=== PATIENT | female | born 1990 | race Caucasian/White ===

== ENCOUNTER 2017-01-10 18:57 | Emergency (ER) | payer SELFPAY ==
[2017-01-10 19:06] VITALS: TEMP 98.2
[2017-01-10] MEDS ORDERED: Lidocaine 1% Inj (20ml) ONE (19:38)
[2017-01-10] MEDS ORDERED: TDAP Vaccine 0.5 mL Syr IM ONE (20:20)
--- NOTE | 2017-01-10 20:29 | ED PDOC ---
Arrival/HPI - General Historian: Patient - History of Present Illness Time/Duration: Prior to Arrival Symptom Onset: Sudden <Jesus Marshall - Last Filed: 01/10/17 20:26> <Peterson Qureshi - Last Filed: 01/10/17 21:45> - General Chief Complaint: Upper Extremity Problem/Injury Time Seen by Provider: 01/10/17 20:15 - Critical Care Narrative Critical Care (Text): 01/10/17 20:33 26 y/o female with no significant hx presents with a laceration to the right 2nd digit. Patient states she was cleaning the dishes when a drinking glass fell and splintered lacerating her hand. This occurred just prior to arrival. The patient did not wash the wound to take anything for pain. She is not certain of her tetanus immunization at this time. Patient has full ROM of the finger. She denies other injuries. (Jesus Marshall) Past Medical History - Provider Review Nursing Documentation Reviewed: Yes - Infectious Disease Hx of Infectious Diseases: None - Psychiatric Hx Substance Use: No <Jesus Marshall - Last Filed: 01/10/17 20:26> Family/Social History - Physician Review Nursing Documentation Reviewed: Yes Family/Social History: Unknown Family HX Smoking Status: Never Smoked Hx Alcohol Use: No Hx Substance Use: No <Jesus Marshall - Last Filed: 01/10/17 20:26> Allergies/Home Meds <Jesus Marshall - Last Filed: 01/10/17 20:26> <Peterson Qureshi - Last Filed: 01/10/17 21:45> Allergies/Adverse Reactions: Allergies No Known Allergies Allergy (Verified 01/10/17 19:06) Review of Systems - Physician Review All systems were reviewed & negative as marked: Yes - Review of Systems Constitutional: absent: Fevers Respiratory: absent: SOB, Cough Skin: Laceration, Other (laceration right index finger ) <Jesus Marshall - Last Filed: 01/10/17 20:26> Physical Exam Vital Signs Reviewed: Yes Temperature: Afebrile Blood Pressure: Normal Pulse: Regular Respiratory Rate: Normal Appearance: Positive for: Well-Appearing Pain Distress: Mild Mental Status: Positive for: Alert and Oriented X 3 - Systems Exam Head: Present: Atraumatic, Normocephalic Pupils: Present: PERRL Extroacular Muscles: Present: EOMI Conjunctiva: Present: Normal Mouth: Present: Moist Mucous Membranes Neck: Present: Normal Range of Motion Respiratory/Chest: Present: Clear to Auscultation, Good Air Exchange. No: Respiratory Distress Cardiovascular: Present: Regular Rate and Rhythm, Normal S1, S2 Abdomen: Present: Tenderness, Normal Bowel Sounds. No: Distention Upper Extremity: No: Normal Inspection (2cm laceration right index finger. wound examined. no foreign objects found. ) Lower Extremity: Present: Normal Inspection, NORMAL PULSES Neurological: Present: GCS=15, CN II-XII Intact, Speech Normal, Motor Func Grossly Intact Skin: Present: Warm, Dry, Normal Color. No: Rashes Psychiatric: Present: Alert, Oriented x 3, Normal Insight, Normal Concentration <Jesus Marshall - Last Filed: 01/10/17 20:26> Vital Signs Temp Pulse Resp BP Pulse Ox 01/10/17 20:30 90 16 138/76 98 01/10/17 19:03 98.2 F 94 H 18 148/76 97 Medical Decision Making <Jesus Marshall - Last Filed: 01/10/17 20:26> <Peterson Qureshi - Last Filed: 01/10/17 21:45> ED Course and Treatment: 01/10/17 20:30 26 y/o with no significant history presents with right second digit laceration. Wound is 2cm in length with clean margins. Laceration requires sutures as the wound overlays the metacarpal joint. Patient is given tetanus booster. Motrin 800mg now for pain. Patient is sent home with Keflex 500mg q12 for 7 days. She is instructed to return if she develops fever, chills, purulent drainage or signs of infection. Patient will return in 7 to 10 days for suture removal. ( Jesus Marshall) In agreement with resident note, which includes further HPI details. Patient was seen and evaluated with resident, came up with plan and treatment together. (Peterson Qureshi) - Medication Orders Current Medication Orders: Discontinued Medications Ibuprofen (Motrin Tab) 800 mg PO STAT STA Stop: 01/10/17 20:21 Last Admin: 01/10/17 20:38 Dose: Not Given Non-Admin Reason: Patient Refused Lidocaine HCl (Lidocaine 1% (20ml)) Confirm Administered Dose 20 ml .ROUTE .STK- MED ONE Stop: 01/10/17 19:39 Last Admin: 01/10/17 20:38 Dose: Tetanus/Reduced Diphtheria/Acell Pertussis (Boostrix Vaccine Inj) 0.5 ml IM .ONCE ONE Stop: 01/10/17 20:21 Last Admin: 01/10/17 20:30 Dose: 0.5 ML MAR Immunization Data Document 01/10/17 20:30 (Rec: 01/10/17 20:31 [id number]) Immunization Data Vaccine Lot Number [id number] Vaccine Expiration Date 01/10/17 - PA / DINING ROOM HOST / Resident Statement / has reviewed & agrees with the documentation as recorded. / has examined the patient and agrees with the treatment plan. <Peterson Qureshi - Last Filed: 01/10/17 21:45> Disposition/Present on Arrival - Present on Arrival Any Indicators Present on Arrival: No History of DVT/PE: No History of Uncontrolled Diabetes: No Urinary Catheter: No History of Decub. Ulcer: No History Surgical Site Infection Following: None - Disposition Have Diagnosis and Disposition been Completed?: Yes Disposition Time: 20:36 Patient Plan: Discharge <Jesus Marshall - Last Filed: 01/10/17 20:26> <Peterson Qureshi - Last Filed: 01/10/17 21:45> - Disposition Diagnosis: Laceration Disposition: HOME/ ROUTINE Condition: GOOD Discharge Instructions (ExitCare): Laceration (ED), Finger Laceration (ED) Additional Instructions: Please return to the ER in 7 to 10 days to remove sutures. You are given an antibiotic called Keflex. Take this as directed for 7 days. Return to the ER if you continue to experience pain, swelling or signs of infection including fever, pus, or foul smelling wound. Prescriptions: Cephalexin [Keflex] 500 mg PO Q12H #14 capsule Referrals: Alicia Walsh, [Primary Care Provider] - Follow up with primary
[2017-01-10 20:37] VITALS: BP 138/76; PULSE 90; RESP 16; O2SAT 98
--- NOTE | 2017-01-10 20:39 | PCM.PROC ---
Procedures Attestation:: I certify that I have explained the specified Operation(s) or Procedure(s), risks, benefits and reasonable alternatives to the Patient and/or other person responsible. The opportunity was given to ask questions and all questions answered - Laceration lidocaine 1% simple, single layer linear irrigated extensively right hand 4 -0 other local infiltration simple, interrupted Site: hand Side (if applicable): right Size (cm): 2 Description: linear Depth: simple, single layer Anesthesia used: lidocaine 1% Anesthesia technique: local infiltration Amount (mLs): 10 Pre-repair: wound explored, irrigated extensively, deep structures intact Skin layer closed with: vicryl Size: 4-0 Number of sutures: 4 Technique: simple, interrupted
== END 2017-01-10 20:39 | disposition home or self-care (01) ==
LOC: ED 18:57
DX: S61.210A Laceration without foreign body of right index finger without damage to nail, initial encounter (principal); W25.XXXA Contact with sharp glass, initial encounter; Z23 Encounter for immunization